=== PATIENT | female | born 1995 | race Hispanic/Latino ===

== ENCOUNTER → 2021-03-20 | Day surgery (SDC) | payer BC ==
[2021-03-17 09:45] VITALS: BMI 32.0
[~2021-03-20] MED LIST: CEFAZOLIN 1 GM VIAL ONE; Lidocaine 1% MPF 2 ML VIAL ONE; Lidocaine 1% w/Epinephrine 1:200K 30 ML VIAL ONE
== END ==
LOC: CSHSDC 09:58
PROVIDERS: ATTEND Obstetrics & Gynecology
PROC: 0UVC7ZZ Restriction of Cervix, Via Natural or Artificial Opening (ICD-10-PCS; principal; 2021-03-20)
DX: O34.32 Maternal care for cervical incompetence, second trimester (principal); O99.891 Other specified diseases and conditions complicating pregnancy; N94.89 Other specified conditions associated with female genital organs and menstrual cycle; Z3A.14 14 weeks gestation of pregnancy; Z88.1 Allergy status to other antibiotic agents
CPT/HCPCS: J0690

== ENCOUNTER 2021-05-16 18:06 | Day surgery (SDC) | payer BC ==
[2021-05-16] MEDS ORDERED: hydrALAZINE 20 MG/ML VIAL SLOW IVP PRN (18:29)
[2021-05-16 18:46] VITALS: BMI 33.5
[2021-05-16 20:12] LABS: Bilirubin Neg (Negative); Blood, Urine Negative (Negative); Clarity Clear (Clear); Glucose, Urine (Dipstick) Normal (Negative); Ketone, Urine 150 mg/dL (Negative); Leukocyte Negative (Negative); Nitrite Negative (Negative); Protein, Urine (Dipstick) Negative (Neg-Trace); Urobilinogen Normal mg/dL (Less than 2)
[2021-05-16 20:15] LABS: Urine Culture Reflex No No
[2021-05-16 20:20] LABS: Bacteria/HPF Rare-Few HPF (None Seen); RBC/HPF 0-3 HPF (0-3); Squamous Epithelial 0-3 HPF (0-3); WBC/HPF 0-3 HPF (0-3)
== END 2021-05-16 20:46 | disposition home or self-care (01) ==
LOC: CSHLD/OP 18:06
PROVIDERS: ATTEND Family Medicine
DX: O34.33 Maternal care for cervical incompetence, third trimester (principal); Z3A.22 22 weeks gestation of pregnancy; Z87.59 Personal history of other complications of pregnancy, childbirth and the puerperium; Z79.890 Hormone replacement therapy; Z79.899 Other long term (current) drug therapy; Z88.1 Allergy status to other antibiotic agents
CPT/HCPCS: 81001; 99282

== ENCOUNTER 2021-09-04 11:25 | Outpatient (CLI) | payer BC ==
[2021-09-04 17:30] LABS: SARS-CoV-2 PCR by NAA Not Detected (NotDetected)
== END 2021-09-04 11:26 | disposition home or self-care (01) ==
LOC: CSHLAB 11:25
PROVIDERS: ATTEND Family Medicine
DX: Z20.822 Contact with and (suspected) exposure to COVID-19 (principal)
CPT/HCPCS: U0003; U0005

== ENCOUNTER 2021-09-07 05:43 | Inpatient (IN) | payer BC ==
[2021-09-07 06:32] VITALS: BMI 36.9
[2021-09-07] MEDS ORDERED: Methylergonovine 0.2 MG/ML VIAL IM PRN (07:06)
[2021-09-07] MEDS ORDERED: Promethazine HCl 25 MG/ML VIAL IM PRN ×2 (07:06→14:14)
[2021-09-07] MEDS ORDERED: Lidocaine 1% (PF) 30 ML VIAL SC PRN (07:06)
[2021-09-07] MEDS ORDERED: Misoprostol 200 MCG TAB PR PRN (07:06)
[2021-09-07] MEDS ORDERED: Acetaminophen 500 MG TAB PO PRN (07:06)
[2021-09-07] MEDS ORDERED: Carboprost 250 MCG/ML AMP IM PRN (07:06)
[2021-09-07] MEDS ORDERED: Butorphanol Tartrate 1 MG/ML VIAL SLOW IVP PRN (07:06)
[2021-09-07] MEDS ORDERED: Ibuprofen 800 MG TAB PO PRN (07:06)
[2021-09-07] MEDS ORDERED: HYDROcodone/Acetaminophen 5/325 mg Tablet PO PRN (07:06)
[2021-09-07] MEDS ORDERED: hydrALAZINE 20 MG/ML VIAL SLOW IVP PRN (07:06)
[2021-09-07] MEDS ORDERED: Ondansetron PF 4 MG/2 ML Vial IVP PRN ×2 (07:06→14:14)
[2021-09-07] MEDS ORDERED: NS w/ Oxytocin 30 units 500 ML IV SCH ×2 (07:15)
[2021-09-07 07:42] LABS: Hemoglobin 11.8 g/dL (12.0-15.5); Mean Corpuscular HGB CONC 33.2 g/dL (32.0-36.0); Mean Corpuscular Hemoglobin 28.6 pg (27.0-33.0); Mean Corpuscular Volume 86.2 fl (81.6-98.3); Platelet Count 97 10x3/uL (150-450); RBC Distribution Width 14.6 % (11.5-14.5); Red Blood Cell (RBC) Count 4.12 10x6/uL (3.90-5.03); White Blood Cell (WBC) Count 9.3 10x3/uL (3.5-10.5)
[2021-09-07 08:35] LABS: HIV (1/2) Antibody/Antigen Non-Reactive (NonReactive); HIV 1/2 INDEX 0.06 S/CO (<1.00); Hep B Surf Ag Non-Reactive S/CO (NonReactive)
[2021-09-07 08:36] LABS: Syphilis Antibody Nonreactive (Nonreactive); Syphilis Antibody Index 0.04 S/CO (<1.00 Non-Reactive)
[2021-09-07 08:47] LABS: HBSAg Index 0.15 S/CO (0-0.99)
[2021-09-07] MEDS ORDERED: Fentanyl 2 mcg/Bup 0.1% Cadd 100 ML ONE ×2 (11:42→23:16)
[2021-09-07] MEDS: Lactated Ringer's 1,000 ML IV SCH (13:16)
[2021-09-07] MEDS ORDERED: Naloxone HCl 0.4 mg/ml Vial IVP PRN ×2 (14:14)
[2021-09-07] MEDS ORDERED: Lactated Ringer's 500 ML IV PRN (14:14)
[2021-09-07] MEDS ORDERED: Hydrocerin (Eucerin) Cream 120 gm Jar TOP PRN (14:14)
[2021-09-07] MEDS ORDERED: Acetaminophen 325 MG TAB PO PRN (14:14)
[2021-09-07] MEDS ORDERED: diphenhydrAMINE 50 MG/ML VIAL IVP PRN (14:14)
[2021-09-07] MEDS ORDERED: ePHEDrine Sulfate 50 MG/10 ML VIAL SLOW IVP PRN (14:14)
[2021-09-07] MEDS ORDERED: Fentanyl 2 mcg/Bupivacaine 0.1% Cassette 100 ML EPIDURAL SCH (14:15)
[2021-09-07] MEDS ORDERED: Communication Order-Pharmacy FS SCH (14:15)
[2021-09-08 03:09] LABS: pH (Cord, venous) 7.349 (7.250-7.350)
[2021-09-08] MEDS ORDERED: Boostrix 0.5 ML (Tdap) VIAL IM ONE (04:41)
[2021-09-08] MEDS ORDERED: Preparation H Ointment 28 GM TUBE PR PRN (04:41)
[2021-09-08] MEDS ORDERED: Bisacodyl 10 MG SUPP PR PRN (04:41)
[2021-09-08] MEDS ORDERED: Milk Of Magnesia 30 ML UDCUP PO PRN (04:41)
[2021-09-08] MEDS ORDERED: hydrALAZINE 20 MG/ML VIAL SLOW IVP PRN (04:41)
[2021-09-08] MEDS ORDERED: Bupivacaine HCl 0.5%/Epinephrine 1:200,000/PF 30 ml Vial ONE (04:50)
[2021-09-08] MEDS ORDERED: Bupivacaine 0.25% HCL 30 ML VIAL ONE (04:50)
[2021-09-08] MEDS: Docusate 100 MG CAP PO SCH ×2 (09:22→21:28)
[2021-09-08] MEDS: Ibuprofen 800 MG TAB PO SCH ×3 (10:38→21:29)
[2021-09-08] MEDS: Lactated Ringer's 1,000 ML IV SCH (10:38)
[2021-09-08] MEDS: Ferrous Sulfate 325 MG TAB PO SCH ×2 (10:39→18:10)
[2021-09-08] MEDS: HYDROcodone/Acetaminophen 5/325 mg Tablet PO PRN ×2 (10:46→20:04)
[2021-09-09] MEDS: Ibuprofen 800 MG TAB PO SCH (05:59)
[2021-09-09] MEDS: Ferrous Sulfate 325 MG TAB PO SCH (07:11)
[2021-09-09 09:03] VITALS: BP 131/75; TEMP 98.1
[2021-09-09] MEDS: Docusate 100 MG CAP PO SCH (09:04)
== END 2021-09-09 12:50 | disposition home or self-care (01) | DRG 807 ==
LOC: CSHLD 05:43 → CSHPP 09-08 09:56
PROVIDERS: ADMIT Family Medicine; ATTEND Family Medicine
PROC: 10E0XZZ Delivery of Products of Conception, External Approach (ICD-10-PCS; principal; 2021-09-08)
PROC: 0HQ9XZZ Repair Perineum Skin, External Approach (ICD-10-PCS; 2021-09-08)
PROC: 10907ZC Drainage of Amniotic Fluid, Therapeutic from Products of Conception, Via Natural or Artificial Opening (ICD-10-PCS; 2021-09-08)
DX: O24.425 Gestational diabetes mellitus in childbirth, controlled by oral hypoglycemic drugs (principal); Z37.0 Single live birth; Z3A.39 39 weeks gestation of pregnancy; Z88.8 Allergy status to other drugs, medicaments and biological substances; O66.0 Obstructed labor due to shoulder dystocia; O70.0 First degree perineal laceration during delivery; O77.0 Labor and delivery complicated by meconium in amniotic fluid; Z79.84 Long term (current) use of oral hypoglycemic drugs
CPT/HCPCS: 36416; 82805; 85027; 86762; 86780; 86850; 86900; 86901; 87340; 87389; J0360; J0595; J1200; J2405; J2590; J7120; S0020; U0003; U0005

== ENCOUNTER 2021-10-25 03:37 | Emergency (ER) | payer BC ==
[2021-10-25] MEDS ORDERED: Ondansetron PF 4 MG/2 ML Vial ONE (04:16)
[2021-10-25] MEDS ORDERED: Ketorolac Tromethamine 30 MG/ML VIAL ONE (04:16)
[2021-10-25 04:18] LABS: #Basophils 0.1 10x3/uL (0.0-0.2); #Eosinphils 0.1 10x3/uL (0.0-0.5); #Monocytes 0.5 10x3/uL (0.0-1.1); #Neutrophils 6.7 10x3/uL (1.5-8.4); %Basophils 0.6 % (0.0-2.0); %Eosinophils 1.1 % (0.0-6.0); %Lymphocytes 29.3 % (18.0-47.0); %Monocytes 4.3 % (0.0-10.0); %Neutrophils 64.2 % (40.0-75.0); Hemoglobin 12.6 g/dL (12.0-15.5); Mean Corpuscular HGB CONC 34.2 g/dL (32.0-36.0); Mean Corpuscular Hemoglobin 28.4 pg (27.0-33.0); Mean Corpuscular Volume 82.9 fl (81.6-98.3); Mean Platelet Volume 12.5 fl (7.4-10.4); Platelet Count 158 10x3/uL (150-450); RBC Distribution Width 13.2 % (11.5-14.5); Red Blood Cell (RBC) Count 4.44 10x6/uL (3.90-5.03); White Blood Cell (WBC) Count 10.5 10x3/uL (3.5-10.5)
[2021-10-25 04:41] LABS: BHCG - Serum Negative (NEGATIVE); Pregs Control Background? CLEAR/WHITE (CLR/WHITE); Pregs Control Bar Appear? YES (CONTROL BAR)
[2021-10-25 04:51] LABS: ALT (SGPT) 51 U/L (8-55); AST (SGOT) 21 U/L (5-34); Albumin 4.3 g/dL (3.5-5.0); Alkaline Phosphatase 72 U/L (40-110); Anion Gap 19 mmol/L (10-20); BUN (Urea Nitrogen) 17 mg/dL (7.0-18.7); Bilirubin, Total 0.4 mg/dL (0.2-1.2); CK (CPK) 58 U/L (29-168); Calc. Creatinine Clearance 0 mL/min (70-130); Calcium 9.6 mg/dL (7.8-10.44); Carbon Dioxide 21 mmol/L (22-29); Chloride 103 mmol/L (98-107); Globulin 3.4 g/dL (2.4-3.5); Glucose 190 mg/dL (70-105); Lipase 29 U/L (8-78); Potassium 3.6 mmol/L (3.5-5.1); Protein, Total 7.7 g/dL (6.0-8.3); Sodium 139 mmol/L (136-145)
[2021-10-25 05:04] LABS: Bilirubin Neg (Negative); Blood, Urine 25 (Negative); Clarity Slightly Cloudy (Clear); Glucose, Urine (Dipstick) Normal (Negative); Ketone, Urine 5 mg/dL (Negative); Leukocyte 100 (Negative); Nitrite Negative (Negative); Protein, Urine (Dipstick) 100 mg/dl (Neg-Trace)
[2021-10-25 05:18] LABS: Bacteria/HPF 1+ HPF (None Seen); Transitional Epithelial 0-3 HPF (None Seen)
== END 2021-10-25 05:45 | disposition home or self-care (01) ==
LOC: CSHERS 03:37
DX: K80.20 Calculus of gallbladder without cholecystitis without obstruction (principal); N39.0 Urinary tract infection, site not specified; F17.200 Nicotine dependence, unspecified, uncomplicated
CPT/HCPCS: 76705; 80053; 81003; 81015; 82550; 83690; 84703; 85025; 96374; 96375; J1885; J2405

== ENCOUNTER 2021-11-14 07:32 | Day surgery (SDC) | payer BC ==
[2021-11-13 09:53] VITALS: BMI 32.0
[~2021-11-14 07:32] MED LIST changes: +Bupivacaine 0.25% HCL 30 ML VIAL ONE; -CEFAZOLIN 1 GM VIAL ONE; +EPINEPHrine 1 MG/ML AMP ONE; -Lidocaine 1% MPF 2 ML VIAL ONE; -Lidocaine 1% w/Epinephrine 1:200K 30 ML VIAL ONE
[2021-11-14] MEDS ORDERED: Lidocaine 1% MPF 2 ML VIAL ONE (08:04)
[2021-11-14] MEDS ORDERED: Lidocaine 1% PF 5 ML VIAL ONE (09:40)
[2021-11-14] MEDS ORDERED: PROPOFOL 20 ML ONE (09:40)
[2021-11-14] MEDS ORDERED: Rocuronium Bromide 10 MG/ML (10ML VIAL) ONE (09:40)
[2021-11-14] MEDS ORDERED: Fentanyl 100 MCG/2 ML VIAL ONE ×3 (09:42→11:09)
[2021-11-14] MEDS ORDERED: Famotidine/PF 20 mg/2ml Vial ONE (09:47)
[2021-11-14] MEDS ORDERED: Glycopyrrolate 0.2 MG/ML 5 ML SYRINGE ONE (09:51)
[2021-11-14] MEDS ORDERED: Dexamethasone 4 mg/ml Vial ONE (10:27)
[2021-11-14] MEDS ORDERED: Ondansetron PF 4 MG/2 ML Vial ONE (10:27)
[2021-11-14] MEDS ORDERED: Ketorolac Tromethamine 30 MG/ML VIAL ONE (10:43)
== END 2021-11-14 12:30 | disposition home or self-care (01) ==
LOC: CSHSDC 07:32
PROVIDERS: ATTEND Surgery
PROC: 0FT44ZZ Resection of Gallbladder, Percutaneous Endoscopic Approach (ICD-10-PCS; principal; 2021-11-14)
DX: K80.10 Calculus of gallbladder with chronic cholecystitis without obstruction (principal); Z79.899 Other long term (current) drug therapy; Z79.84 Long term (current) use of oral hypoglycemic drugs; F17.210 Nicotine dependence, cigarettes, uncomplicated
CPT/HCPCS: 88304; C1713; J0171; J1100; J1885; J2405; J2704; J3010; J3490; S0020; S0028

== ENCOUNTER 2023-02-20 09:44 | Day surgery (SDC) | payer BC ==
[2023-02-18 12:14] VITALS: BMI 33.8
[2023-02-18 12:58] LABS: Hemoglobin 12.2 g/dL (12.0-15.5); Mean Corpuscular HGB CONC 34.2 g/dL (32.0-36.0); Mean Corpuscular Hemoglobin 28.8 pg (27.0-33.0); Mean Corpuscular Volume 84.4 fl (81.6-98.3); Platelet Count 138 10x3/uL (150-450); RBC Distribution Width 13.2 % (11.5-14.5); Red Blood Cell (RBC) Count 4.23 10x6/uL (3.90-5.03); White Blood Cell (WBC) Count 5.2 10x3/uL (3.5-10.5)
[2023-02-20] MEDS ORDERED: Lidocaine 1% w/Epinephrine 1:200K 30 ML VIAL ONE (11:03)
[2023-02-20] MEDS ORDERED: Famotidine/PF 20 mg/2ml Vial ONE (11:05)
[2023-02-20] MEDS ORDERED: Midazolam HCl 2 mg/2 ml Vial ONE (11:24)
[2023-02-20] MEDS ORDERED: PROPOFOL 40 ML ONE (11:24)
[2023-02-20] MEDS ORDERED: fentaNYL 50 mcg/mL 1 mL Vial ONE (11:24)
[2023-02-20] MEDS ORDERED: Lidocaine 1% PF 5 ML VIAL ONE (11:24)
[2023-02-20] MEDS ORDERED: Clindamycin/D5W 900 mg/50 ml Premix Bag ONE (11:54)
[2023-02-20] MEDS ORDERED: Ondansetron PF 4 MG/2 ML Vial ONE (12:03)
[2023-02-20] MEDS ORDERED: Ketorolac Tromethamine 30 MG/ML VIAL ONE (12:05)
[2023-02-20] MEDS ORDERED: Dexamethasone 4 mg/ml Vial ONE (12:06)
== END 2023-02-20 16:15 | disposition home or self-care (01) ==
LOC: CSHSDC 09:44
PROVIDERS: ATTEND Obstetrics & Gynecology
PROC: 0UVC0ZZ Restriction of Cervix, Open Approach (ICD-10-PCS; principal; 2023-02-20)
DX: O34.31 Maternal care for cervical incompetence, first trimester (principal); Z3A.13 13 weeks gestation of pregnancy
CPT/HCPCS: 85027; 86850; 86900; 86901; J1100; J1885; J2250; J2405; J2704; J3010; J3490; S0028

== ENCOUNTER 2023-08-12 05:30 | Inpatient (IN) | payer BC, OTHER ==
[2023-08-12] MEDS ORDERED: Methylergonovine 0.2 MG/ML VIAL IM PRN (06:27)
[2023-08-12] MEDS ORDERED: Ondansetron PF 4 MG/2 ML Vial IVP PRN ×2 (06:27→10:16)
[2023-08-12] MEDS ORDERED: Butorphanol Tartrate 1 MG/ML VIAL SLOW IVP PRN (06:27)
[2023-08-12] MEDS ORDERED: Promethazine HCl 25 MG/ML VIAL IM PRN ×2 (06:27→10:16)
[2023-08-12] MEDS ORDERED: Carboprost 250 MCG/ML AMP IM PRN (06:27)
[2023-08-12] MEDS ORDERED: Tranexamic Acid 1,000 MG/10 ML VIAL IVP PRN (06:27)
[2023-08-12] MEDS ORDERED: Ibuprofen 800 MG TAB PO PRN (06:27)
[2023-08-12] MEDS ORDERED: Misoprostol 200 MCG TAB PR PRN (06:27)
[2023-08-12] MEDS ORDERED: Lidocaine 1% (PF) 30 ML VIAL SC PRN (06:27)
[2023-08-12] MEDS ORDERED: hydrALAZINE 20 MG/ML VIAL SLOW IVP PRN ×2 (06:27→21:07)
[2023-08-12] MEDS ORDERED: Acetaminophen 500 MG TAB PO PRN (06:27)
[2023-08-12] MEDS ORDERED: HYDROcodone/Acetaminophen 5/325 mg Tablet PO PRN (06:27)
[2023-08-12] MEDS ORDERED: Oxytocin 30 units/NS 500 ML 500 ML IV SCH ×2 (06:30)
[2023-08-12 06:32] VITALS: BMI 36.6
[2023-08-12 07:12] LABS: Hemoglobin 11.7 g/dL (12.0-15.5); Mean Corpuscular HGB CONC 33.4 g/dL (32.0-36.0); Mean Corpuscular Hemoglobin 27.1 pg (27.0-33.0); Mean Corpuscular Volume 81.2 fl (81.6-98.3); Platelet Count 108 10x3/uL (150-450); RBC Distribution Width 14.3 % (11.5-14.5); Red Blood Cell (RBC) Count 4.31 10x6/uL (3.90-5.03); White Blood Cell (WBC) Count 9.1 10x3/uL (3.5-10.5)
[2023-08-12 07:13] LABS: Glucose 104 mg/dL (70-105)
[2023-08-12 07:24] LABS: Syphilis Antibody Nonreactive (Nonreactive); Syphilis Antibody Index 0.07 S/CO (<1.00 Non-Reactive)
[2023-08-12 07:26] LABS: HBSAg Index 0.21 S/CO (0-0.99); HIV (1/2) Antibody/Antigen Non-Reactive (NonReactive); HIV 1/2 INDEX 0.09 S/CO (<1.00); Hep B Surf Ag - L&D Non-Reactive S/CO (NonReactive)
[2023-08-12] MEDS ORDERED: Bupivacaine 0.25% HCL 30 ML VIAL ONE (08:00)
[2023-08-12] MEDS ORDERED: fentaNYL/Ropivacaine Epidural 100 ML ONE (09:29)
[2023-08-12] MEDS ORDERED: Naloxone HCl 0.4 mg/ml Vial IVP PRN ×2 (10:16)
[2023-08-12] MEDS ORDERED: Acetaminophen 325 MG TAB PO PRN (10:16)
[2023-08-12] MEDS ORDERED: ePHEDrine Sulfate 50 MG/10 ML VIAL SLOW IVP PRN (10:16)
[2023-08-12] MEDS ORDERED: Moisturizing Cream (Eucerin) 113 GM JAR TOP PRN (10:16)
[2023-08-12] MEDS ORDERED: diphenhydrAMINE 50 MG/ML VIAL IVP PRN (10:16)
[2023-08-12] MEDS ORDERED: Lactated Ringer's 500 ML IV PRN (10:16)
[2023-08-12] MEDS ORDERED: fentaNYL 2 mcg/Ropivacaine 0.2% Epidural 100 ML CADD EPIDURAL SCH (10:30)
[2023-08-12] MEDS ORDERED: Communication Order-Pharmacy FS SCH (10:30)
[2023-08-12 13:15] LABS: ALT (SGPT) 10 U/L (8-55); AST (SGOT) 13 U/L (5-34); Albumin 3.3 g/dL (3.5-5.0); Alkaline Phosphatase 122 U/L (40-110); Anion Gap 17 mmol/L (10-20); BUN (Urea Nitrogen) 12 mg/dL (7.0-18.7); Bilirubin, Total 0.7 mg/dL (0.2-1.2); Calc. Creatinine Clearance 197 mL/min (70-130); Calcium 8.6 mg/dL (7.8-10.44); Carbon Dioxide 17 mmol/L (22-29); Chloride 107 mmol/L (98-107); Estimated GFR 125; Glucose 105 mg/dL (70-105); Potassium 4.1 mmol/L (3.5-5.1); Protein, Total 6.3 g/dL (6.0-8.3); Sodium 137 mmol/L (136-145)
[2023-08-12 13:25] LABS: Hemoglobin A1c 7.2 % (4.0-6.0)
[2023-08-12] MEDS ORDERED: Famotidine/PF 20 mg/2ml Vial SLOW IVP PRN (14:15)
[2023-08-12] MEDS ORDERED: Misoprostol 200 MCG TAB ONE (16:15)
[2023-08-12] MEDS ORDERED: Carboprost 250 MCG/ML AMP ONE (16:15)
[2023-08-12 16:35] LABS: Analyzer IN Cardio CS NICU; RapidComm Collect By CBN; pH (Cord, venous) 7.368 (7.250-7.350)
[2023-08-12 16:36] LABS: Analyzer IN Cardio CS NICU; RapidComm Collect By CBN
[2023-08-12] MEDS ORDERED: Magnesium Sulfate 20 gm/500 ml 20 GM/500 ML BAG ONE (17:03)
[2023-08-12] MEDS ORDERED: Calcium Gluc 4.6 MEQ/10 ML (100 MG/ML) SLOW IVP PRN (17:04)
[2023-08-12] MEDS ORDERED: Lorazepam 2 MG/ML VIAL SLOW IVP PRN (17:04)
[2023-08-12] MEDS ORDERED: Labetalol HCl 100 MG/20 ML VIAL SLOW IVP PRN ×3 (18:15)
[2023-08-12] MEDS: Magnesium Sulfate 20 gm/500 ml 20 GM/500 ML BAG IVPB SCH (18:30)
[2023-08-12] MEDS ORDERED: Bisacodyl 10 MG SUPP PR PRN (21:07)
[2023-08-12] MEDS ORDERED: Benzocaine-Menthol 82.5 ML CAN TOP PRN (21:07)
[2023-08-12] MEDS ORDERED: Milk Of Magnesia 30 ML UDCUP PO PRN (21:07)
[2023-08-12] MEDS ORDERED: Preparation H Ointment 28 GM TUBE PR PRN (21:07)
[2023-08-12] MEDS ORDERED: Lanolin Ointment 7 GM TUBE TOP PRN (21:07)
[2023-08-12] MEDS: HYDROcodone/Acetaminophen 5/325 mg Tablet PO PRN (21:13)
[2023-08-12] MEDS ORDERED: Ferrous Sulfate 325 MG TAB PO SCH (21:15)
[2023-08-13] MEDS: HYDROcodone/Acetaminophen 5/325 mg Tablet PO PRN ×2 (02:14→16:23)
[2023-08-13 05:21] LABS: Hemoglobin 10.4 g/dL (12.0-15.5)
[2023-08-13 05:40] LABS: ALT (SGPT) 11 U/L (8-55); AST (SGOT) 19 U/L (5-34); Albumin 2.6 g/dL (3.5-5.0); Alkaline Phosphatase 103 U/L (40-110); Anion Gap 14 mmol/L (10-20); BUN (Urea Nitrogen) 8 mg/dL (7.0-18.7); Bilirubin, Total 0.6 mg/dL (0.2-1.2); Calc. Creatinine Clearance 185 mL/min (70-130); Calcium 8.2 mg/dL (7.8-10.44); Carbon Dioxide 19 mmol/L (22-29); Chloride 108 mmol/L (98-107); Estimated GFR 123; Globulin 2.8 g/dL (2.4-3.5); Glucose 163 mg/dL (70-105); Potassium 3.8 mmol/L (3.5-5.1); Protein, Total 5.4 g/dL (6.0-8.3); Sodium 137 mmol/L (136-145)
[2023-08-13] MEDS: Ibuprofen 800 MG TAB PO PRN ×2 (08:09→16:20)
[2023-08-13] MEDS: Magnesium Sulfate 20 gm/500 ml 20 GM/500 ML BAG IVPB SCH (08:14)
[2023-08-13] MEDS: Ferrous Sulfate 325 MG TAB PO SCH ×2 (09:42→18:58)
[2023-08-13] MEDS: Docusate 100 MG CAP PO SCH ×3 (09:42→21:23)
[2023-08-13] MEDS ORDERED: Labetalol HCl 100 MG TAB PO SCH ×2 (13:00→21:00)
[2023-08-14 08:07] VITALS: BP 140/82; TEMP 98
== END 2023-08-14 11:30 | disposition home or self-care (01) | DRG 807 ==
LOC: CSHLD 05:38 → CSHPP 08-13 16:45
PROVIDERS: ADMIT Family Medicine; ATTEND Family Medicine
PROC: 10E0XZZ Delivery of Products of Conception, External Approach (ICD-10-PCS; principal; 2023-08-12)
PROC: 10907ZC Drainage of Amniotic Fluid, Therapeutic from Products of Conception, Via Natural or Artificial Opening (ICD-10-PCS; 2023-08-12)
DX: O24.429 Gestational diabetes mellitus in childbirth, unspecified control (principal); Z37.0 Single live birth; Z3A.39 39 weeks gestation of pregnancy; O69.81X0 Labor and delivery complicated by cord around neck, without compression, not applicable or unspecified; O66.0 Obstructed labor due to shoulder dystocia; Z88.8 Allergy status to other drugs, medicaments and biological substances; Z79.84 Long term (current) use of oral hypoglycemic drugs; O14.94 Unspecified pre-eclampsia, complicating childbirth
CPT/HCPCS: 36416; 51702; 80053; 82570; 82805; 82947; 83036; 84156; 85014; 85018; 85027; 86780; 86850; 86900; 86901; 87340; 87389; J0360; J2590; J3475; S0020